=== PATIENT | female | born 1995 | race Caucasian/White ===

== ENCOUNTER 2017-10-26 07:03 | Emergency (ER) | payer OTHER, MEDICAID | END 2017-10-26 08:55 | LOC: E/R 07:03 | DX: O99.89 Other specified diseases and conditions complicating pregnancy, childbirth and the puerperium (principal); T40.691A Poisoning by other narcotics, accidental (unintentional), initial encounter; O99.512 Diseases of the respiratory system complicating pregnancy, second trimester; J45.909 Unspecified asthma, uncomplicated; Z3A.18 18 weeks gestation of pregnancy | CPT/HCPCS: 99283; Z7502 ==